=== PATIENT | male | born 1955 | race Caucasian/White ===

== ENCOUNTER 2018-06-16 09:55 | Inpatient (IN) | payer BC, OTHER ==
[~2018-06-16 09:55] MED LIST: ceFAZolin 2 GM in Premix Bag 1 BAG IV SCH
[2018-06-16] MEDS: Lactated Ringers 1,000 ML IV SCH (11:45)
[2018-06-16] MEDS ORDERED: fentaNYL 100 MCG/2 ML SDV ONE (11:52)
[2018-06-16] MEDS ORDERED: Propofol 200 MG/20 ML SDV ONE ×2 (11:52→14:37)
[2018-06-16] MEDS ORDERED: Midazolam 1 MG/ML 2 ML SDV ONE (11:52)
--- NOTE | 2018-06-16 12:32 | PCM.PREANE ---
Preanesthetic Assessment - Anesthesia/Transfusion/Family Hx Anesthesia History: Prior Anesthesia Without Reaction Family History of Anesthesia Reaction: No Transfusion History: No Prior Transfusion(s) - Review of Systems General: No Symptoms Pulmonary: No Symptoms Cardiovascular: No Symptoms Gastrointestinal: No Symptoms Neurological: No Symptoms - Physical Assessment NPO Status Date: 06/16/18 NPO Status Time: 07:00 O2 Sat by Pulse Oximetry: 95 Respiratory Rate: 18 Vital Signs: Last Vital Signs Temp 98.2 F 06/16/18 11:30 Pulse 61 06/16/18 11:30 Resp 18 06/16/18 11:30 BP 144/81 H 06/16/18 11:30 Pulse Ox 95 06/16/18 11:30 Height: 6 ft 1 in Weight: 120.202 kg ASA Class: 2 Mental Status: Alert & Oriented x3 Dentition: Reports: Dentures (upper) ROM/Head Extension: Full Lungs: Clear to Auscultation, Normal Respiratory Effort Cardiovascular: Regular Rate, Regular Rhythm - Allergies Allergies/Adverse Reactions: Allergies Allergy/AdvReac Type Severity Reaction Status Date / Time No Known Allergies Allergy Verified 06/12/18 10:56 - Anesthesia Plan Pre-Op Medication Ordered: None - Acknowledgements Anesthesia Type Planned: Spinal Pt an Appropriate Candidate for the Planned Anesthesia: Yes Alternatives and Risks of Anesthesia Discussed w Pt/Guardian: Yes Pt/Guardian Understands and Agrees with Anesthesia Plan: Yes PreAnesthesia Questionnaire HEENT History: Reports: Cataract Other HEENT History: wears glasses Cardiovascular History: Reports: High Cholesterol, Hypertension Other Cardiovascular History: slight murmur Respiratory History: Reports: None Gastrointestinal History: Reports: Diverticulosis Other Gastrointestinal History: occasional heartburn Genitourinary History: Reports: None Musculoskeletal History: Reports: Fracture Other Musculoskeletal History: hx of fx ankle as a child and wrist in high school Neurological History: Reports: None Psychiatric History: Reports: None Endocrine/Metabolic History: Reports: Obesity/BMI 30+ Hematologic History: Reports: None Immunologic History: Reports: None Oncologic (Cancer) History: Reports: None Dermatologic History: Reports: None - Past Surgical History Head Surgeries/Procedures: Reports: None HEENT Surgical History: Reports: Cataract Surgery, Detached Retina Other HEENT Surgeries/Procedures: right cataract removal and right detached retina Respiratory Surgical History: Reports: None GI Surgical History: Reports: Colonoscopy Male Surgical History: Reports: None Endocrine Surgical History: Reports: None Neurological Surgical History: Reports: None Musculoskeletal Surgical History: Reports: Carpal Tunnel, Other (See Below) Other Musculoskeletal Surgeries/Procedures:: states he has a pin in his right wrist (ORIF), excision of back mass Oncologic Surgical History: Reports: None Dermatological Surgical History: Reports: None - SUBSTANCE USE Smoking Status *Q: Former Smoker Recreational Drug Use History: No - HOME MEDS Home Medications: Home Meds Hydrochlorothiazide 25 mg PO QAM 12/21/15 [History] Ibuprofen 2 - 3 tab PO ASDIRECTED PRN 12/21/15 [History] Lovastatin 20 mg PO BEDTIME 12/21/15 [History] Metoprolol Tartrate 75 mg PO BID 12/21/15 [History] Potassium Chloride [Klor-Con Sprinkle] 20 meq PO DAILY 12/21/15 [History] Acetaminophen [Tylenol Arthritis] 1 tab PO ASDIRECTED PRN 06/12/18 [History] - CURRENT (IN HOUSE) MEDS Current Meds: Current Medications Cefazolin Sodium/Dextrose 2 gm (/ Premix) 50 mls @ 100 mls/hr IV ONETIME [facility] Lactated Ringer's (Ringers, Lactated) 1,000 mls @ 100 mls/hr IV ASDIRECTED [facility] Last Admin: 06/16/18 11:45 Dose: 100 mls/hr Discontinued Medications Fentanyl (Sublimaze) Confirm Administered Dose 100 mcg .ROUTE .STK-MED ONE Stop: 06/16/18 11:53 Midazolam HCl (Versed 1 Mg/Ml) Confirm Administered Dose 2 mg .ROUTE .STK-MED ONE Stop: 06/16/18 11:53 Propofol (Diprivan 20 Ml) Confirm Administered Dose 200 mg .ROUTE .STK-MED ONE Stop: 06/16/18 11:53 Tranexamic Acid (Cyklokapron) 2,000 mg IV ONETIME ONE Stop: 06/16/18 07:01 Tranexamic Acid (Cyklokapron) Confirm Administered Dose 2,000 mg .ROUTE .STK- MED ONE Stop: 06/16/18 07:35
[2018-06-16] MEDS ORDERED: ePHEDrine 50 MG/ML SDV ONE (13:57)
[2018-06-16] MEDS ORDERED: ceFAZolin 1 GM Vial ONE (13:57)
[2018-06-16] MEDS ORDERED: Phenylephrine/Normal Saline 100 MCG/ML 10 ML Syringe ONE (13:57)
[2018-06-16] MEDS ORDERED: Glycopyrrolate 0.2 MG/ML SDV ONE (14:09)
[2018-06-16] MEDS ORDERED: Phenylephrine 1% 10 MG/ML SDV ONE (14:37)
--- NOTE | 2018-06-16 15:06 | PCM.OPNOTE ---
- General Post-Op/Procedure Note Date of Surgery/Procedure: 06/16/18 Operative Procedure(s): right anterior total hip arthroplasty Findings: severe OA Pre Op Diagnosis: right hip osteoarthritis Post-Op Diagnosis: same Anesthesia Technique: Moderate Sedation, Spinal Primary Surgeon: Casper Sauceda Mai Decator Operator: Octavia Foreman Pathology: femoral head EBL in mLs: 700 Complications: none Condition: Good
[2018-06-16] MEDS ORDERED: Bisacodyl 10 MG Supp RECTAL PRN (15:13)
[2018-06-16] MEDS ORDERED: diphenhydrAMINE 25 MG Cap PO PRN (15:13)
[2018-06-16] MEDS ORDERED: Ondansetron 4 MG/2 ML SDV IV PRN (15:13)
[2018-06-16] MEDS ORDERED: Aluminum Hydroxide/Magnesium Hydroxide/Simethicone Susp 30 ML Cup PO PRN (15:13)
[2018-06-16] MEDS ORDERED: Acetaminophen/HYDROcodone 325-7.5 MG Tab PO PRN (15:14)
--- NOTE | 2018-06-16 16:15 | PCM.POSTAN ---
POST ANESTHESIA ASSESSMENT - MENTAL STATUS Mental Status: Alert, Oriented - VITAL SIGNS Pulse Rate: 91 SaO2: 96 Resp Rate: 18 Blood Pressure: 127/71 - RESPIRATORY Respiratory Status: Respiratory Rate WNL, Airway Patent, O2 Saturation Stable - CARDIOVASCULAR CV Status: Pulse Rate WNL, Blood Pressure Stable - GASTROINTESTINAL GI Status: No Symptoms - PAIN Pain Score: 0 - POST OP HYDRATION Hydration Status: Adequate & Stable (patient is able to move legs and lift them off the bed)
--- NOTE | 2018-06-16 16:27 | CR ---
EXAMINATION: Right hip HISTORY: Arthroplasty COMPARISON: 09/11/2017 TECHNIQUE: 4 fluoroscopic images provided FINDINGS/IMPRESSION: Operative control films demonstrate placement of right total hip hardware in good position and alignment.
--- NOTE | 2018-06-16 16:31 | OR ---
SURGEON: Casper Daley MD DATE OF PROCEDURE: 06/16/2018 [employer]ER LEAD TEACHER: Octavia Foreman PA-C. PREOPERATIVE DIAGNOSIS: Right hip osteoarthritis. POSTOPERATIVE DIAGNOSIS: Right hip osteoarthritis. PROCEDURE PERFORMED: Right anterior total hip arthroplasty. ANESTHESIA: Spinal sedation. COMPLICATION: None. ESTIMATED BLOOD LOSS: 700 mL. SPECIMENS: Femoral head. IMPLANTS: Nona Continuum trabecular metal shell with cluster holes, 56 mm outer diameter, Vivacit-E neutral liner, 36 mm inner diameter, Fitmore hip stem uncemented size B extended offset size 9, Biolox ceramic femoral head 36 mm diameter, zero neck length. INDICATIONS: The patient is a 62-year-old male with severe osteoarthritis, who has failed conservative management, modification therapy and injections, has chronic pain on a daily basis hindering activities, and wished to undergo replacement. He understands risks, benefits, alternatives, and complications of procedure including, but not limited to infection, neurovascular injury, continued pain, DVT, PE, stroke, HI, , leg-length discrepancy, fracture, dislocation, and he wished to proceed. DESCRIPTION OF PROCEDURE: The patient was seen in the preoperative area. Operative extremity was marked with the patient. He was transferred to the operating room, where spinal anesthetic was given. He was placed supine on the Huang table, and the right hip was prepped and draped in the usual sterile fashion using alcohol followed by ChloraPrep, after placing the legs into the leg bars. He received preop antibiotics of Ancef 2 g and TXA. Formal time-out was taken, identifying the correct patient, procedure, and extremity. An 8 cm incision starting just lateral to the ASIS going obliquely to femur was made. Dissection was carried down through subcutaneous tissues. Hemostasis was obtained. The fascia overlying the TFL lateral to the lateral femoral cutaneous nerve was opened, and the interval between TFL and sartorius and deep between the abductors and rectus was opened. The anterior vessels were coagulated and the deep Vernon retractors were placed, and the vastus lateralis fascia was opened. Indirect head of the capsule was released and the capsule was held. There was a circumflex vessel near the iliopsoas far inferomedially that began to bleed. This took several minutes to control, and he lost several millimeters of blood at this point. Deep retractors were placed. The neck was cut from the saddle region to 1 cm above the lesser trochanter. The head was removed. There was severe arthritis, complete labral ossification anteriorly, and large osteophytes. Some of these were removed as well as later after the cup was impacted. The head measured 51 mm. Then, after removing the labral remnants, pulvinar and releasing the inferior capsule, the hip was sequentially reamed. After planing the bed to make sure it was levelled from 51 to 55 mm, going slightly superomedially, we had good fit and fill. The Continuum trabecular metal shell with cluster holes was impacted in 10 degrees anteversion to 40 degrees abduction. This had excellent press fit. Neutral liner was then impacted. The femoral lift was placed. The leg was externally rotated, abducted, and extended. The superior capsule, obturator internus and piriformis were released. Central canal finder was utilized, and the hip was sequentially broached from starter rasp up to size 8. We tried to reduce with printed overlay technique with extended offset for size B. Printed overlay technique showed offset to be equal leg lengths, to be short approximately 5 to 6 mm. Therefore, the hip was dislocated. It was broached up to a size 9 following the nisqually version and B extended offset size 9 was impacted. It was trial reduced with a zero neck length, which showed equal leg lengths and offset compared to the opposite side. Therefore, the hip was dislocated. After ranging it, it was stable and there was no shuck. Then, after cleaning the Ace taper, the final 36 mm diameter zero neck was impacted. The hip was then relocated with two tag sutures tied together. The fascia was closed with #1 Vicryl, subcutaneous tissues with 2-0 STRATAFIX, skin with running 4-0 Monocryl, Dermabond and tape. Sterile dressing was placed. The patient was extubated in the operating room and transferred to the recovery room in a stable condition. Sponge and needle counts were correct at the end of the case. There were no complications. KRISTINA RAMIREZ /[id number]
[2018-06-16] MEDS: Ketorolac 30 MG/ML SDV IVPUSH SCH ×2 (17:03→21:40)
[2018-06-16] MEDS: Docusate Sodium 100 MG Cap PO SCH (21:39)
[2018-06-16] MEDS: Metoprolol Tartrate 50 MG Tab PO SCH (21:39)
[2018-06-16] MEDS: ceFAZolin 2 GM in Premix Bag 1 BAG IV SCH (21:44)
[2018-06-17] MEDS: Lactated Ringers 1,000 ML IV SCH (01:13)
[2018-06-17] MEDS: Ketorolac 30 MG/ML SDV IVPUSH SCH (03:04)
[2018-06-17] MEDS: ceFAZolin 2 GM in Premix Bag 1 BAG IV SCH (05:45)
[2018-06-17] MEDS ORDERED: Sodium Chloride 0.9% 10 ML Syringe FLUSH PRN (07:16)
[2018-06-17] MEDS ORDERED: Sodium Chloride 0.9% 2.5 ML Syringe FLUSH PRN (07:16)
--- NOTE | 2018-06-17 07:17 | PCM.SN ---
- Free Text/Narrative Note: S: doing well. Pain controlled. has not ambulated yet. no CP/SOB. no other issues O: afebrile, vital signs stable dressing clean/dry/intact. no swelling in thigh or distally. sensation intact distally and active motor. 2+ DP A/P: POD #1 right STUART - full weight bearing, walker - ecotrin and SCDs for DVT prophylaxis - to home today, f/u in 2 weeks.
[2018-06-17 08:32] VITALS: BP 110/63
[2018-06-17] MEDS ORDERED: Aspirin 81 MG Tab.Chew PO SCH (09:00)
[2018-06-17] MEDS ORDERED: Hydrochlorothiazide 25 MG Tab PO SCH (09:00)
[2018-06-17] MEDS ORDERED: Potassium Chloride 20 MEQ Tab.ER PO SCH (09:00)
[2018-06-17] MEDS ORDERED: Celecoxib 100 MG Cap PO SCH (09:00)
[2018-06-17] MEDS: Metoprolol Tartrate 50 MG Tab PO SCH (09:17)
[2018-06-17] MEDS: Docusate Sodium 100 MG Cap PO SCH (09:17)
--- NOTE | 2018-06-18 07:08 | PCM.DCSUM1 ---
Discharge Summary - Hospital Course Brief History: Patient was admitted for elective total hip arthroplasty. He underwent uneventful surgery and postoperatively was admitted to the floor where his pain was controlled and his diet was advanced. He participated in physical therapy with weightbearing as tolerated. Essentially discharged home on postoperative day #1 area did take aspirin for DVT prophylaxis he'll follow- up in 2 weeks. Diagnosis: Stroke: No - Discharge Data Discharge Date: 06/18/18 Discharge Disposition: Home, Self-Care 01 Condition: Good - Patient Summary/Data Operative Procedure(s) Performed: right anterior total hip arthroplasty Consults: Consultations 06/16/18 15:12 PT Evaluation and Treatment [CONS] Routine - Patient Instructions Diet: Usual Diet as Tolerated Activity: Apply Ice, Full Weight Bearing Driving: Do Not Drive Showering/Bathing: May Shower Wound/Incision Care: Keep Operative Site/Wound Site Clean and Dry, Do NOT Change Dressing Notify Provider of: Fever, Swelling and Redness, Drainage - Discharge Plan *PRESCRIPTION DRUG MONITORING PROGRAM REVIEWED*: No *COPY OF PRESCRIPTION DRUG MONITORING REPORT IN PATIENT JORDEN: No Home Medications: Home Meds Hydrochlorothiazide 25 mg PO QAM 12/21/15 [History] Ibuprofen 2 - 3 tab PO ASDIRECTED PRN 12/21/15 [History] Lovastatin 20 mg PO BEDTIME 12/21/15 [History] Metoprolol Tartrate 75 mg PO BID 12/21/15 [History] Potassium Chloride [Klor-Con Sprinkle] 20 meq PO DAILY 12/21/15 [History] Acetaminophen [Tylenol Arthritis] 1 tab PO ASDIRECTED PRN 06/12/18 [History] Patient Handouts: Acetaminophen; Hydrocodone tablets or capsules, Total Hip Replacement, Care After, [id number], Docusate capsules, Aspirin capsules or tablets extended release Referrals: Octavia Foreman PA [Phys[employer]] - 06/30/18 11:20 am - Discharge Summary/Plan Comment DC Time >30 min.: No - Patient Data Vitals - Most Recent: Last Vital Signs Temp 36.4 C 06/17/18 08:00 Pulse 81 06/17/18 09:17 Resp 18 06/17/18 08:00 BP 110/63 06/17/18 09:17 Pulse Ox 95 06/17/18 08:00 Weight - Most Recent: 120.202 kg Med Orders - Current: Current Medications Discontinued Medications Hydrocodone Bitart/Acetaminophen (Josephine 325-7.5 Mg) 1 - 2 tab PO Q4H PRN PRN Reason: Pain Last Admin: 06/17/18 06:27 Dose: 2 tab Al Hydroxide/Mg Hydroxide (Mag-Al Plus) 30 ml PO Q4H PRN PRN Reason: indigestion Aspirin (Aspirin) 81 mg PO BID [facility] Last Admin: 06/17/18 09:22 Dose: 81 mg Bisacodyl (Dulcolax) 10 mg RECTAL DAILY PRN PRN Reason: Constipation Cefazolin Sodium (Ancef) Confirm Administered Dose 1 gm .ROUTE .STK-MED ONE Stop: 06/16/18 13:58 Celecoxib (Celebrex) 200 mg PO DAILY [facility] Last Admin: 06/17/18 09:25 Dose: 200 mg Diphenhydramine HCl (Benadryl) 25 - 50 mg PO Q6H PRN PRN Reason: Itching Docusate Sodium (Colace) 100 mg PO BID [facility] Last Admin: 06/17/18 09:17 Dose: 100 mg Ephedrine Sulfate (Ephedrine Sulfate) Confirm Administered Dose 50 mg .ROUTE .STK-MED ONE Stop: 06/16/18 13:58 Fentanyl (Sublimaze) Confirm Administered Dose 100 mcg .ROUTE .STK-MED ONE Stop: 06/16/18 11:53 Glycopyrrolate (Robinul) Confirm Administered Dose 0.2 mg .ROUTE .STK-MED ONE Stop: 06/16/18 14:10 Hydrochlorothiazide (Hydrochlorothiazide) 25 mg PO QAM [facility] Last Admin: 06/17/18 09:21 Dose: 25 mg Lactated Ringer's (Ringers, Lactated) 1,000 mls @ 100 mls/hr IV ASDIRECTED [facility] Last Admin: 06/17/18 01:13 Dose: 100 mls/hr Lidocaine HCl (Xylocaine-Mpf 1%) Confirm Administered Dose 5 mls @ as directed .ROUTE .STK-MED ONE Stop: 06/16/18 13:58 Cefazolin Sodium/Dextrose 2 gm (/ Premix) 50 mls @ 100 mls/hr IV Q8H [facility] Stop: 06/17/18 06:29 Last Admin: 06/17/18 05:45 Dose: 100 mls/hr Ketorolac Tromethamine (Toradol) 30 mg IVPUSH Q6H [facility] Stop: 06/17/18 05:00 Last Admin: 06/17/18 03:04 Dose: 30 mg Lovastatin (Mevacor) 20 mg PO BEDTIME [facility] Last Admin: 06/16/18 21:39 Dose: 20 mg Metoprolol Tartrate (Lopressor) 75 mg PO BID [facility] Last Admin: 06/17/18 09:17 Dose: 75 mg Midazolam HCl (Versed 1 Mg/Ml) Confirm Administered Dose 2 mg .ROUTE .STK-MED ONE Stop: 06/16/18 11:53 Morphine Sulfate (Morphine Sulfate) 1 - 3 mg IV Q3H PRN PRN Reason: Pain Ondansetron HCl (Zofran) 4 mg IV Q6HR PRN PRN Reason: NAUSEA/VOMITING Phenylephrine HCl (Phenylephrine In Ns 100 Mcg/Ml) Confirm Administered Dose 1 mg .ROUTE .STK-MED ONE Stop: 06/16/18 13:58 Phenylephrine HCl (Nathan-Synephrine) Confirm Administered Dose 10 mg .ROUTE .STK- MED ONE Stop: 06/16/18 14:38 Potassium Chloride (Klor-Con M20) 20 meq PO DAILY [facility] Last Admin: 06/17/18 09:17 Dose: 20 meq Propofol (Diprivan 20 Ml) Confirm Administered Dose 200 mg .ROUTE .STK-MED ONE Stop: 06/16/18 11:53 Propofol (Diprivan 20 Ml) Confirm Administered Dose 200 mg .ROUTE .STK-MED ONE Stop: 06/16/18 14:38 Sodium Chloride (Saline Flush) 10 ml FLUSH ASDIRECTED PRN PRN Reason: Keep Vein Open Sodium Chloride (Saline Flush) 2.5 ml FLUSH ASDIRECTED PRN PRN Reason: Keep Vein Open Tranexamic Acid (Cyklokapron) 2,000 mg IV ONETIME ONE Stop: 06/16/18 07:01 Tranexamic Acid (Cyklokapron) Confirm Administered Dose 2,000 mg .ROUTE .STK- MED ONE Stop: 06/16/18 07:35
== END 2018-06-17 12:30 | disposition home or self-care (01) | DRG 301 ==
LOC: MW.MS 10:28
PROVIDERS: ADMIT Orthopaedic Surgery; ATTEND Orthopaedic Surgery
PROC: 0SR904A Replacement of Right Hip Joint with Ceramic on Polyethylene Synthetic Substitute, Uncemented, Open Approach (ICD-10-PCS; principal; 2018-06-16)
DX: M16.11 Unilateral primary osteoarthritis, right hip (principal); E66.9 Obesity, unspecified; Z68.37 Body mass index [BMI] 37.0-37.9, adult; M25.751 Osteophyte, right hip; E78.00 Pure hypercholesterolemia, unspecified; G89.29 Other chronic pain; I10 Essential (primary) hypertension; E78.5 Hyperlipidemia, unspecified; Z87.891 Personal history of nicotine dependence; Z79.899 Other long term (current) drug therapy
CPT/HCPCS: 36415; 76000; 76000-26; 85014; 85018; 97110-GP; 97161-GP; A9270-GY; C1776; J0690; J1885; J2001; J2250; J2370; J2704; J3010; J3490; J7120